=== PATIENT | female | born 1945 | race African-American/Black ===

== ENCOUNTER 2021-09-27 10:20 | Inpatient (IN) ==
[2021-09-27] MEDS ORDERED: SODIUM CHLORIDE 0.9% 1,000 ML IV STA (10:44)
[2021-09-27 10:50] LABS: Basophils # 0.1 10*3/uL (0.0-0.2); Basophils % 0.8 % (0.0-0.8); Eosinophils % 0.2 % (0.00-10.9); Hematocrit 38.4 VOL% (35.7-47.0); Hemoglobin 11.7 GM/DL (12.0-16.0); Immature Granulocytes % 0.5 %; Immature Granulocytes Absolute 0.03 #; Lymphocytes % 16.2 % (21.3-54.2); Mean Corpuscular HGB Conc 30.5 GM/DL (32-36); Mean Corpuscular Volume 86.9 FL (87-102); Monocytes # 0.7 10*3/uL (0.11-0.8); Monocytes % 10.8 % (1.7-12.7); Neutrophils % 71.5 % (38.7-73.9); Platelet Count 232 T/CUMM (130-400); Red Blood Count 4.42 MC/CUMM (3.8-5.5); White Blood Count 6.3 T/CUMM (4-12)
[2021-09-27 11:06] LABS: Alanine Aminotransferase 20 U/L (13-56); Albumin 3.4 G/DL (3.4-5.0); Alkaline Phosphatase 66 U/L (45-117); Aspartate Amino Transferase 36 U/L (0-37); Blood Urea Nitrogen 13 MG/DL (7-18); Calcium 8.9 MG/DL (8.5-10.1); Carbon Dioxide 22 MMOL/L (21-32); Chloride 109 MMOL/L (98-107); Glucose 112 MG/DL (74-106); Osmolality,Calculated 275.7 MOS/KG (273-304); Potassium 3.6 MMOL/L (3.5-5.1); Sodium 138 MMOL/L (136-145); Total Protein 7.5 G/DL (6.4-8.2)
[2021-09-27] MEDS ORDERED: levETIRAcetam 500 MG/5 ML VIAL IV ONE (11:26)
[2021-09-27 11:51] LABS: Bacteria,Urine Occasional /HPF (Few); Mucus,Urine Occasional /LPF (Occasional); Squamous Epithelial Cell,Urine Few /HPF (0-10)
[2021-09-27 11:53] LABS: Bilirubin,Urine Negative (Negative); Blood, Urine Small mg/dL (Negative); Glucose,Urine (UA) Negative (Negative); Ketones,Urine Negative (Negative); Nitrite,Urine Negative (Negative); Protein,Urine 30 mg/dL (Negative); Urine Appearance Clear (Clear); Urine Color Yellow (Yellow); Urine Specific Gravity 1.015 (1.001-1.035); Urine Urobilinogen 0.2 eU/dL (<2.0)
[2021-09-27 12:14] LABS: Barbiturates Screen,Urine Negative (Negative); Benzodiazepines Screen,Urine Negative (Negative); Cannabinoid Screen,Urine Negative (Negative); Opiate Screen,Urine Positive (Negative); Phencyclidine Screen,Urine Negative (Negative)
[2021-09-27] MEDS ORDERED: hydrALAZINE 20 MG/1 ML VIAL IV STA (13:17)
[2021-09-27] MEDS ORDERED: GLUCAGON 1 MG VIAL IM PRN ×2 (13:19)
[2021-09-27] MEDS ORDERED: ONDANSETRON 4 MG/2 ML VIAL IV PRN (13:19)
[2021-09-27] MEDS ORDERED: DEXTROSE 50% 25 GM/50 ML VIAL IV PRN (13:19)
[2021-09-27] MEDS ORDERED: LORazepam 2 MG/1 ML VIAL IV PRN (13:22)
[2021-09-27] MEDS ORDERED: DEXTROSE 10% 250 ML BAG IV PRN (13:45)
[2021-09-27] MEDS: ENOXAPARIN 40 MG/0.4 ML SYRINGE SUBCUT SCH (14:41)
[2021-09-27] MEDS: SODIUM CHLORIDE 0.9% 1,000 ML IV SCH (14:42)
[2021-09-27] MEDS: INSULIN LISPRO 100 UNIT/ML SUBCUT SCH ×2 (16:30→21:55)
[2021-09-27] MEDS: GABAPENTIN 100 MG CAPSULE PO SCH ×2 (18:35→22:21)
[2021-09-27] MEDS: VERAPAMIL 80 MG TABLET PO SCH ×2 (18:35→22:19)
[2021-09-27] MEDS: TOPIRAMATE 25 MG TABLET PO SCH (22:20)
[2021-09-28] MEDS: SODIUM CHLORIDE 0.9% 1,000 ML IV SCH ×3 (00:49→19:03)
[2021-09-28 06:34] LABS: Basophils % 0.7 % (0.0-0.8); Eosinophils # 0.1 10*3/uL (0.0-0.87); Eosinophils % 1.2 % (0.00-10.9); Hematocrit 32.9 VOL% (35.7-47.0); Immature Granulocytes % 0.7 %; Immature Granulocytes Absolute 0.03 #; Lymphocytes # 0.9 10*3/uL (1.4-4.0); Lymphocytes % 20.2 % (21.3-54.2); Mean Corpuscular HGB Conc 30.4 GM/DL (32-36); Mean Corpuscular Volume 86.1 FL (87-102); Mean Platelet Volume 10.2 FL (9.6-12.0); Monocytes # 0.5 10*3/uL (0.11-0.8); Monocytes % 11.9 % (1.7-12.7); Neutrophils % 65.3 % (38.7-73.9); Platelet Count 187 T/CUMM (130-400); Red Blood Count 3.82 MC/CUMM (3.8-5.5); Red Cell Distribution Width 15.1 % (9.3-17.3); White Blood Count 4.2 T/CUMM (4-12)
[2021-09-28 06:59] LABS: Albumin 2.8 G/DL (3.4-5.0); Bilirubin,Total 0.4 MG/DL (0.20-1.00); Calcium 8.1 MG/DL (8.5-10.1); Osmolality,Calculated 277.4 MOS/KG (273-304); Potassium 3.5 MMOL/L (3.5-5.1); Total Protein 6.1 G/DL (6.4-8.2)
[2021-09-28] MEDS: INSULIN LISPRO 100 UNIT/ML SUBCUT SCH ×4 (07:53→21:44)
[2021-09-28] MEDS ORDERED: NON-FORMULARY MEDICATION (Omeprazole 20 mg capsule,delayed release(DR/EC)) PO SCH (09:00)
[2021-09-28] MEDS: NICOTINE 7 MG/24 HR PATCH TRANSDERM SCH (09:50)
[2021-09-28] MEDS: TOPIRAMATE 25 MG TABLET PO SCH ×2 (09:50→21:44)
[2021-09-28] MEDS: GABAPENTIN 100 MG CAPSULE PO SCH ×3 (09:50→21:44)
[2021-09-28] MEDS: VERAPAMIL 80 MG TABLET PO SCH ×3 (09:51→21:44)
[2021-09-28] MEDS: ESCITALOPRAM 10 MG TABLET PO SCH (09:51)
[2021-09-28] MEDS: PANTOPRAZOLE 40 MG TABLET PO SCH (09:51)
[2021-09-28] MEDS: ASCORBIC ACID 500 MG TABLET PO SCH (21:44)
[2021-09-28] MEDS: ATORVASTATIN 20 MG TABLET PO SCH (21:45)
[2021-09-28] MEDS: ENOXAPARIN 40 MG/0.4 ML SYRINGE SUBCUT SCH (21:45)
[2021-09-29] MEDS: SODIUM CHLORIDE 0.9% 1,000 ML IV SCH ×2 (05:20→14:51)
[2021-09-29 05:53] LABS: Basophils % 0.7 % (0.0-0.8); Eosinophils # 0.2 10*3/uL (0.0-0.87); Eosinophils % 4.3 % (0.00-10.9); Hematocrit 32.6 VOL% (35.7-47.0); Immature Granulocytes % 0.5 %; Immature Granulocytes Absolute 0.02 #; Lymphocytes # 0.8 10*3/uL (1.4-4.0); Lymphocytes % 20.3 % (21.3-54.2); Mean Corpuscular HGB Conc 30.7 GM/DL (32-36); Mean Platelet Volume 10.1 FL (9.6-12.0); Monocytes # 0.5 10*3/uL (0.11-0.8); Monocytes % 10.9 % (1.7-12.7); Neutrophils % 63.3 % (38.7-73.9); Platelet Count 186 T/CUMM (130-400); Red Blood Count 3.79 MC/CUMM (3.8-5.5); Red Cell Distribution Width 14.9 % (9.3-17.3); White Blood Count 4.1 T/CUMM (4-12)
[2021-09-29 06:06] LABS: Blood Urea Nitrogen 11 MG/DL (7-18); Carbon Dioxide 20 MMOL/L (21-32); Chloride 115 MMOL/L (98-107); Glucose 87 MG/DL (74-106); Osmolality,Calculated 276.4 MOS/KG (273-304); Potassium 3.4 MMOL/L (3.5-5.1); Sodium 140 MMOL/L (136-145)
[2021-09-29] MEDS: INSULIN LISPRO 100 UNIT/ML SUBCUT SCH ×4 (08:09→21:32)
[2021-09-29] MEDS ORDERED: POTASSIUM CHLORIDE 20 MEQ TABLET PO ONE (09:00)
[2021-09-29] MEDS ORDERED: hydrALAZINE 25 MG TABLET PO SCH (09:00)
[2021-09-29] MEDS: hydrALAZINE 20 MG/1 ML VIAL IV PRN (09:13)
[2021-09-29] MEDS: GABAPENTIN 100 MG CAPSULE PO SCH ×3 (09:16→21:32)
[2021-09-29] MEDS: CHOLECALCIFEROL 1,000 UNIT TABLET PO SCH (09:16)
[2021-09-29] MEDS: ASCORBIC ACID 500 MG TABLET PO SCH ×2 (09:16→21:32)
[2021-09-29] MEDS: TOPIRAMATE 25 MG TABLET PO SCH ×2 (09:16→21:31)
[2021-09-29] MEDS: ESCITALOPRAM 10 MG TABLET PO SCH (09:16)
[2021-09-29] MEDS: ZINC GLUCONATE 50 MG TABLET PO SCH (09:16)
[2021-09-29] MEDS: NICOTINE 7 MG/24 HR PATCH TRANSDERM SCH (09:16)
[2021-09-29] MEDS: PANTOPRAZOLE 40 MG TABLET PO SCH (09:16)
[2021-09-29] MEDS: VERAPAMIL SR 240 MG TABLET PO SCH ×2 (10:07→21:31)
[2021-09-29] MEDS: ACETAMINOPHEN 325 MG TABLET PO PRN (21:31)
[2021-09-29] MEDS: ENOXAPARIN 40 MG/0.4 ML SYRINGE SUBCUT SCH (21:32)
[2021-09-29] MEDS: ATORVASTATIN 20 MG TABLET PO SCH (21:32)
[2021-09-30] MEDS: SODIUM CHLORIDE 0.9% 1,000 ML IV SCH ×2 (00:25→13:03)
[2021-09-30 05:28] LABS: Basophils % 0.8 % (0.0-0.8); Eosinophils # 0.2 10*3/uL (0.0-0.87); Eosinophils % 4.6 % (0.00-10.9); Hematocrit 31.5 VOL% (35.7-47.0); Hemoglobin 9.4 GM/DL (12.0-16.0); Immature Granulocytes % 0.3 %; Immature Granulocytes Absolute 0.01 #; Lymphocytes # 0.9 10*3/uL (1.4-4.0); Lymphocytes % 23.1 % (21.3-54.2); Mean Corpuscular HGB Conc 29.8 GM/DL (32-36); Mean Corpuscular Volume 85.8 FL (87-102); Mean Platelet Volume 10.8 FL (9.6-12.0); Monocytes # 0.4 10*3/uL (0.11-0.8); Monocytes % 11.1 % (1.7-12.7); Neutrophils % 60.1 % (38.7-73.9); Platelet Count 194 T/CUMM (130-400); Red Blood Count 3.67 MC/CUMM (3.8-5.5); Red Cell Distribution Width 14.8 % (9.3-17.3); White Blood Count 3.9 T/CUMM (4-12)
[2021-09-30 05:49] LABS: Alanine Aminotransferase 14 U/L (13-56); Albumin 2.4 G/DL (3.4-5.0); Alkaline Phosphatase 44 U/L (45-117); Aspartate Amino Transferase 27 U/L (0-37); Bilirubin,Total < 0.39 MG/DL (0.20-1.00); Blood Urea Nitrogen 11 MG/DL (7-18); Calcium 7.9 MG/DL (8.5-10.1); Carbon Dioxide 18 MMOL/L (21-32); Chloride 117 MMOL/L (98-107); Glucose 82 MG/DL (74-106); Osmolality,Calculated 280.1 MOS/KG (273-304); Potassium 3.5 MMOL/L (3.5-5.1); Sodium 142 MMOL/L (136-145); Total Protein 5.6 G/DL (6.4-8.2)
[2021-09-30] MEDS: INSULIN LISPRO 100 UNIT/ML SUBCUT SCH ×4 (08:15→20:25)
[2021-09-30] MEDS: PANTOPRAZOLE 40 MG TABLET PO SCH (08:54)
[2021-09-30] MEDS: ESCITALOPRAM 10 MG TABLET PO SCH (08:54)
[2021-09-30] MEDS: TOPIRAMATE 25 MG TABLET PO SCH ×2 (08:54→20:25)
[2021-09-30] MEDS: CHOLECALCIFEROL 1,000 UNIT TABLET PO SCH (08:54)
[2021-09-30] MEDS: ASCORBIC ACID 500 MG TABLET PO SCH ×2 (08:55→20:25)
[2021-09-30] MEDS: ZINC GLUCONATE 50 MG TABLET PO SCH (08:55)
[2021-09-30] MEDS: GABAPENTIN 100 MG CAPSULE PO SCH ×3 (08:55→20:25)
[2021-09-30] MEDS: NICOTINE 7 MG/24 HR PATCH TRANSDERM SCH (08:55)
[2021-09-30] MEDS: VERAPAMIL SR 240 MG TABLET PO SCH ×2 (08:59→20:25)
[2021-09-30] MEDS: hydrALAZINE 20 MG/1 ML VIAL IV PRN (09:40)
[2021-09-30] MEDS: ATORVASTATIN 20 MG TABLET PO SCH (20:25)
[2021-09-30] MEDS: ENOXAPARIN 40 MG/0.4 ML SYRINGE SUBCUT SCH (20:25)
[2021-10-01 05:22] LABS: Basophils % 0.5 % (0.0-0.8); Eosinophils % 0.9 % (0.00-10.9); Hematocrit 31.8 VOL% (35.7-47.0); Hemoglobin 9.8 GM/DL (12.0-16.0); Immature Granulocytes % 0.5 %; Immature Granulocytes Absolute 0.02 #; Lymphocytes # 0.7 10*3/uL (1.4-4.0); Lymphocytes % 16.9 % (21.3-54.2); Mean Corpuscular HGB Conc 30.8 GM/DL (32-36); Mean Platelet Volume 10.2 FL (9.6-12.0); Monocytes # 0.5 10*3/uL (0.11-0.8); Neutrophils % 70.2 % (38.7-73.9); Platelet Count 217 T/CUMM (130-400); Red Blood Count 3.74 MC/CUMM (3.8-5.5); Red Cell Distribution Width 14.7 % (9.3-17.3); White Blood Count 4.3 T/CUMM (4-12)
[2021-10-01 05:53] LABS: Albumin 2.6 G/DL (3.4-5.0); Bilirubin,Total 0.5 MG/DL (0.20-1.00); Calcium 8.4 MG/DL (8.5-10.1); Osmolality,Calculated 281.3 MOS/KG (273-304); Potassium 3.6 MMOL/L (3.5-5.1); Total Protein 6.1 G/DL (6.4-8.2)
[2021-10-01] MEDS: INSULIN LISPRO 100 UNIT/ML SUBCUT SCH ×4 (08:04→20:38)
[2021-10-01] MEDS: TOPIRAMATE 25 MG TABLET PO SCH ×2 (09:21→22:01)
[2021-10-01] MEDS: GABAPENTIN 100 MG CAPSULE PO SCH ×3 (09:21→22:01)
[2021-10-01] MEDS: ZINC GLUCONATE 50 MG TABLET PO SCH (09:21)
[2021-10-01] MEDS: ESCITALOPRAM 10 MG TABLET PO SCH (09:22)
[2021-10-01] MEDS: NICOTINE 7 MG/24 HR PATCH TRANSDERM SCH (09:22)
[2021-10-01] MEDS: PANTOPRAZOLE 40 MG TABLET PO SCH (09:22)
[2021-10-01] MEDS: VERAPAMIL SR 240 MG TABLET PO SCH ×2 (09:22→22:00)
[2021-10-01] MEDS: CHOLECALCIFEROL 1,000 UNIT TABLET PO SCH (09:22)
[2021-10-01] MEDS: ASCORBIC ACID 500 MG TABLET PO SCH ×2 (09:22→22:01)
[2021-10-01] MEDS ORDERED: TUBERCULIN SKIN TEST 0.1 ML SYRINGE INTRADERM ONE (09:55)
[2021-10-01] MEDS: ENOXAPARIN 40 MG/0.4 ML SYRINGE SUBCUT SCH (22:00)
[2021-10-01] MEDS: ATORVASTATIN 20 MG TABLET PO SCH (22:01)
[2021-10-02 06:18] LABS: Basophils % 0.6 % (0.0-0.8); Eosinophils # 0.1 10*3/uL (0.0-0.87); Eosinophils % 1.5 % (0.00-10.9); Hematocrit 33.3 VOL% (35.7-47.0); Hemoglobin 10.3 GM/DL (12.0-16.0); Immature Granulocytes % 0.6 %; Immature Granulocytes Absolute 0.03 #; Lymphocytes # 0.8 10*3/uL (1.4-4.0); Lymphocytes % 17.5 % (21.3-54.2); Mean Corpuscular HGB Conc 30.9 GM/DL (32-36); Mean Corpuscular Volume 84.9 FL (87-102); Mean Platelet Volume 10.7 FL (9.6-12.0); Monocytes # 0.6 10*3/uL (0.11-0.8); Monocytes % 12.6 % (1.7-12.7); Neutrophils % 67.2 % (38.7-73.9); Platelet Count 253 T/CUMM (130-400); Red Blood Count 3.92 MC/CUMM (3.8-5.5); Red Cell Distribution Width 14.8 % (9.3-17.3); White Blood Count 4.7 T/CUMM (4-12)
[2021-10-02 06:38] LABS: Albumin 2.7 G/DL (3.4-5.0); Bilirubin,Total 0.4 MG/DL (0.20-1.00); Calcium 8.5 MG/DL (8.5-10.1); Osmolality,Calculated 281.4 MOS/KG (273-304); Potassium 3.7 MMOL/L (3.5-5.1); Total Protein 6.1 G/DL (6.4-8.2)
[2021-10-02] MEDS: GABAPENTIN 100 MG CAPSULE PO SCH ×3 (10:30→21:19)
[2021-10-02] MEDS: TOPIRAMATE 25 MG TABLET PO SCH ×2 (10:30→21:19)
[2021-10-02] MEDS: ZINC GLUCONATE 50 MG TABLET PO SCH (10:31)
[2021-10-02] MEDS: CHOLECALCIFEROL 1,000 UNIT TABLET PO SCH (10:31)
[2021-10-02] MEDS: VERAPAMIL SR 240 MG TABLET PO SCH ×2 (10:31→21:46)
[2021-10-02] MEDS: ESCITALOPRAM 10 MG TABLET PO SCH (10:31)
[2021-10-02] MEDS: INSULIN LISPRO 100 UNIT/ML SUBCUT SCH ×4 (10:32→21:46)
[2021-10-02] MEDS: NICOTINE 7 MG/24 HR PATCH TRANSDERM SCH (10:32)
[2021-10-02] MEDS: PANTOPRAZOLE 40 MG TABLET PO SCH (10:32)
[2021-10-02] MEDS: ASCORBIC ACID 500 MG TABLET PO SCH ×2 (10:33→21:19)
[2021-10-02] MEDS: ENOXAPARIN 40 MG/0.4 ML SYRINGE SUBCUT SCH (21:19)
[2021-10-02] MEDS: ATORVASTATIN 20 MG TABLET PO SCH (21:19)
[2021-10-03 05:55] LABS: Basophils % 0.7 % (0.0-0.8); Eosinophils # 0.1 10*3/uL (0.0-0.87); Eosinophils % 1.4 % (0.00-10.9); Hematocrit 31.9 VOL% (35.7-47.0); Hemoglobin 9.9 GM/DL (12.0-16.0); Immature Granulocytes % 0.5 %; Immature Granulocytes Absolute 0.02 #; Lymphocytes % 22.7 % (21.3-54.2); Mean Corpuscular Volume 85.3 FL (87-102); Monocytes # 0.7 10*3/uL (0.11-0.8); Monocytes % 15.2 % (1.7-12.7); Neutrophils % 59.5 % (38.7-73.9); Platelet Count 282 T/CUMM (130-400); Red Blood Count 3.74 MC/CUMM (3.8-5.5); Red Cell Distribution Width 14.7 % (9.3-17.3); White Blood Count 4.4 T/CUMM (4-12)
[2021-10-03 06:13] LABS: Albumin 2.7 G/DL (3.4-5.0); Bilirubin,Total 0.4 MG/DL (0.20-1.00); Calcium 8.6 MG/DL (8.5-10.1); Osmolality,Calculated 280.5 MOS/KG (273-304); Potassium 3.7 MMOL/L (3.5-5.1)
[2021-10-03] MEDS: INSULIN LISPRO 100 UNIT/ML SUBCUT SCH ×4 (09:32→21:33)
[2021-10-03] MEDS: ZINC GLUCONATE 50 MG TABLET PO SCH (09:37)
[2021-10-03] MEDS: VERAPAMIL SR 240 MG TABLET PO SCH ×2 (09:37→21:32)
[2021-10-03] MEDS: ASCORBIC ACID 500 MG TABLET PO SCH ×2 (09:38→21:32)
[2021-10-03] MEDS: PANTOPRAZOLE 40 MG TABLET PO SCH (09:39)
[2021-10-03] MEDS: GABAPENTIN 100 MG CAPSULE PO SCH ×3 (09:39→21:32)
[2021-10-03] MEDS: CHOLECALCIFEROL 1,000 UNIT TABLET PO SCH (09:40)
[2021-10-03] MEDS: ESCITALOPRAM 10 MG TABLET PO SCH (09:40)
[2021-10-03] MEDS: TOPIRAMATE 25 MG TABLET PO SCH ×2 (09:40→21:32)
[2021-10-03] MEDS: NICOTINE 7 MG/24 HR PATCH TRANSDERM SCH (09:41)
[2021-10-03] MEDS: ENOXAPARIN 40 MG/0.4 ML SYRINGE SUBCUT SCH (21:32)
[2021-10-03] MEDS: ACETAMINOPHEN 325 MG TABLET PO PRN (21:32)
[2021-10-03] MEDS: ATORVASTATIN 20 MG TABLET PO SCH (21:32)
[2021-10-04 06:19] LABS: Basophils % 0.4 % (0.0-0.8); Eosinophils # 0.1 10*3/uL (0.0-0.87); Hematocrit 32.9 VOL% (35.7-47.0); Immature Granulocytes % 0.6 %; Immature Granulocytes Absolute 0.03 #; Lymphocytes # 0.9 10*3/uL (1.4-4.0); Lymphocytes % 17.6 % (21.3-54.2); Mean Corpuscular HGB Conc 30.4 GM/DL (32-36); Mean Corpuscular Volume 84.8 FL (87-102); Mean Platelet Volume 10.6 FL (9.6-12.0); Monocytes # 0.7 10*3/uL (0.11-0.8); Monocytes % 12.9 % (1.7-12.7); Neutrophils % 67.5 % (38.7-73.9); Platelet Count 342 T/CUMM (130-400); Red Blood Count 3.88 MC/CUMM (3.8-5.5); Red Cell Distribution Width 14.7 % (9.3-17.3); White Blood Count 5.1 T/CUMM (4-12)
[2021-10-04 06:40] LABS: Albumin 2.8 G/DL (3.4-5.0); Bilirubin,Total 0.4 MG/DL (0.20-1.00); Calcium 8.8 MG/DL (8.5-10.1); Osmolality,Calculated 277.7 MOS/KG (273-304); Potassium 3.3 MMOL/L (3.5-5.1); Total Protein 6.3 G/DL (6.4-8.2)
[2021-10-04] MEDS: INSULIN LISPRO 100 UNIT/ML SUBCUT SCH ×4 (08:44→21:09)
[2021-10-04] MEDS: VERAPAMIL SR 240 MG TABLET PO SCH ×2 (10:10→21:18)
[2021-10-04] MEDS: PANTOPRAZOLE 40 MG TABLET PO SCH (10:10)
[2021-10-04] MEDS: TOPIRAMATE 25 MG TABLET PO SCH ×2 (10:10→21:19)
[2021-10-04] MEDS: GABAPENTIN 100 MG CAPSULE PO SCH ×3 (10:10→21:19)
[2021-10-04] MEDS: ASCORBIC ACID 500 MG TABLET PO SCH ×2 (10:11→21:19)
[2021-10-04] MEDS: NICOTINE 7 MG/24 HR PATCH TRANSDERM SCH (10:11)
[2021-10-04] MEDS: ZINC GLUCONATE 50 MG TABLET PO SCH (10:11)
[2021-10-04] MEDS: ESCITALOPRAM 10 MG TABLET PO SCH (10:11)
[2021-10-04] MEDS: CHOLECALCIFEROL 1,000 UNIT TABLET PO SCH (10:12)
[2021-10-04] MEDS ORDERED: POTASSIUM CHLORIDE 20 MEQ TABLET PO ONE (11:00)
[2021-10-04] MEDS: ATORVASTATIN 20 MG TABLET PO SCH (21:19)
[2021-10-04] MEDS: ENOXAPARIN 40 MG/0.4 ML SYRINGE SUBCUT SCH (21:19)
[2021-10-05] MEDS: INSULIN LISPRO 100 UNIT/ML SUBCUT SCH ×2 (09:39→12:41)
[2021-10-05] MEDS: ESCITALOPRAM 10 MG TABLET PO SCH (09:40)
[2021-10-05] MEDS: GABAPENTIN 100 MG CAPSULE PO SCH (09:40)
[2021-10-05] MEDS: TOPIRAMATE 25 MG TABLET PO SCH (09:40)
[2021-10-05] MEDS: NICOTINE 7 MG/24 HR PATCH TRANSDERM SCH (09:40)
[2021-10-05] MEDS: PANTOPRAZOLE 40 MG TABLET PO SCH (09:41)
[2021-10-05] MEDS: ASCORBIC ACID 500 MG TABLET PO SCH (09:41)
[2021-10-05] MEDS: CHOLECALCIFEROL 1,000 UNIT TABLET PO SCH (09:41)
[2021-10-05] MEDS: ZINC GLUCONATE 50 MG TABLET PO SCH (09:42)
[2021-10-05] MEDS: VERAPAMIL SR 240 MG TABLET PO SCH (09:45)
[2021-10-05 15:55] VITALS: BP 159/54
== END 2021-10-05 15:30 | disposition home health service (06) | DRG 535 ==
LOC: EDUNIT# → N.ED 10:20 → N.EDINP 10:20 → N.5E 18:19 → SUATTDRO 09-28 09:51
PROVIDERS: ADMIT Internal Medicine; ATTEND Internal Medicine